=== PATIENT | female | born 1950 | race Caucasian/White ===

== ENCOUNTER 2019-09-21 15:30 | Observation (INO) | payer OTHER, SELFPAY ==
[2019-08-28 09:58] VITALS: BMI 33.7
[2019-09-20] VITALS (10 sets, daily range): BP systolic 85–126; BP diastolic 45–75; PULSE 55–90; RESP 10–18; TEMP 36.1–36.9; O2SAT 95–99; BMI 33.7
--- NOTE | 2019-09-20 09:44 | DI.RAD.S_ITS ---
PROCEDURE: XR KNEE RT 1TO2V INDICATIONS: post op TECHNIQUE: 2 view(s) of the knee acquired. COMPARISON: None. FINDINGS: Bones: Patient is status post knee joint arthroplasty. Hardware components are in expected positions. Visualized bony structures are intact. Soft tissues: Overlying postoperative changes are noted. IMPRESSION: Normal alignment after right total knee arthroplasty. Dictated by: Vincent Silva M.D. on 09/20/2019 at 18:23 Approved by: Vincent Silva M.D. on 09/20/2019 at 18:23
--- NOTE | 2019-09-20 10:43 | P.OP_ITS ---
Operative Date/Time/Diagnoses Date of procedure: 09/20/19 Time of procedure: 16:53 Pre-op diagnosis: Right knee osteoarthritis Post-op diagnosis: same Procedure & Clinicians Procedure: Right total knee arthroplasty Same procedure as scheduled: Yes Indications: The patient presents today for total knee arthroplasty after failure of conservative treatment. The nature of the procedure including the risks and benefits, alternatives, postoperative course and expected outcome were discussed and all questions answered. Consent was obtained. Operative site confirmed and marked. Surgeon: Jamaal Narvaez Senior Software Project Manager: Shane Gates Anesthesia Type: General, Spinal and Local Operative Notes Findings: The patient's tissue was somewhat edematous throughout most likely due to her exacerbation of eczema. No evidence of infection. A +2 femoral cut was made given her preoperative flexion contracture of approximately 15?. Approximately 10 cm was cut from least involved lateral tibial plateau which corresponded to 3 mm from the medial side. The knee balanced with routine soft tissue exposure and osteophyte removal along with some mild release of the MCL with an 18 gauge needle. The knee was just slightly tight medial compared to lateral. The knee went into full extension and flexed beyond 120?. Patellar tracking was excellent. Closure Type: primary Specimen(s): none sent Prosthetic devices, grafts, tissues, transplants, or devices: Barroso and Nephew Devika BCS: 5 femoral component, 3 tibial component, 9 mm BCS polyethylene tray and 29 x 7.5 mm round patella Applied: implant(s) Blood products transfused: none Tourniquet time (min): 56 Procedure in detail: The patient was taken to the operative suite and placed under general and spinal anesthesia. The patient was given prophylactic antibiotics prior to surgery. The patient was also given tranexamic acid, 1 g, just prior to surgery for postoperative hemostasis. The lateral knee was prepped and the joint injected with 20 mL of 1% Lidocaine with epinephrine. The knee was then prepped and draped in usual sterile fashion. The leg was exsanguinated with an Esmarch dressing and the tourniquet raised to 250 torr. A 15 cm anterior incision was made. Next a medial trivector arthrotomy was made. The extensor mechanism was marked to ensure accurate repair. Initial exposing dissection was carried out medially and laterally. The knee was then flexed and the intramedullary femoral guide janet placed. The distal femoral cut was made in 6 ? of valgus at the +2 position. The femoral size was measured and the appropriate cutting block was then placed and the anterior, posterior and chamfer cuts made. The intramedullary tibial alignment janet was then placed. The guide was set to remove approximately 10 mm from the less affected lateral side. The proximal tibial cut was then made with an oscillating saw. All meniscus and bony debris was then removed. Posterior femoral osteophytes removed with a curved osteotome. Flexion extension gaps were checked. The knee was slightly tight medial which was mostly corrected with standard releases and osteophyte removal plus some percutaneous release of the MCL with an 18 gauge needle. The soft tissues were then injected with a combination of 20 mL of half percent Marcaine with epinephrine and 20 mL of Exparel. The trial components were then placed. The knee was then extended and the patellar thickness was measured and a cut made removing approximately 7-8 mm of bone. The patella was then sized and drilled. Some excess lateral bone was excised and the patellofemoral ligament released. The knee went into full extension and flexion beyond 120?. There was excellent medial-lateral balance throughout motion with just slight tightness medially in extension. Patellar tracking was excellent. The trial components were removed and the knee was cleansed with Pulsavac irrigation and dried. The final components were cemented with high viscosity vacuum mixed bone cement with antibiotics. The joint was filled with a dilute Betadine solution. The knee was held in extension and the patellar clamped until the cement was adequately cured. The knee was then irrigated. The extensor mechanism was closed with 5 interrupted #1 Vicryl sutures and a running Quill suture at approximately 90 degrees of flexion. The joint was then injected with a combination of 1 g of tranexamic acid and 20 mL of quarter percent Marcaine with epinephrine. The subcutaneous tissue was closed with 2 0 Vicryl. The skin was closed with pernell and surgical adhesive. An tru dressing and Timo wrap were then applied. The patient tolerated the procedure well and was returned to recovery room in good condition. Complications: none Post-operative Condition: stable Disposition: PACU Plan for aftercare: Count includes the [facility] protocol for total knee arthroplasty.
[2019-09-20] MEDS: LACTATED RINGERS 1,000 ML 84 ML IV (13:38)
--- NOTE | 2019-09-20 13:41 | PM.PREOP ---
Pre-operative Note Interval Note History & Physical reviewed/Exam performed by Physician: Yes Changes to H&P: No
[2019-09-20] MEDS: CELECOXIB 200 MG CAPSULE PO (13:54)
[2019-09-20] MEDS: PREGABALIN 75 MG CAPSULE PO (13:54)
[2019-09-20] MEDS: ACETAMINOPHEN 325 MG TABLET 975 MG PO (13:54)
--- NOTE | 2019-09-20 14:29 | SUR.PREOP ---
Admit note: Patient arrived with irritated skin. Patient stated that sh
[2019-09-20] MEDS: CEFAZOLIN 2 GM/100 ML FROZ.PIGGY IV ×2 (15:15→22:03)
[2019-09-20] MEDS: LIDOCAINE 1% W/EPI 20 ML INJ (15:30)
--- NOTE | 2019-09-20 15:56 | SUR.OPER ---
Supine on padded OR bed. Pillow under head, arms secured on padded armboards <90 degree abduction. Safety belt across torso. Non-operative leg secured with tape over blanket over lower leg. Operative leg secured in DeMayo/Ady positioner. Foam padded brace at thigh of operative leg.
[2019-09-20] MEDS: BUPIVACAINE 0.25% W/ EPI (PF) 20 ML, TRANEXAMIC ACID 1,000 MG, SODIUM CHLORIDE 0.9% 10 ML INJ (16:00)
[2019-09-20] MEDS: BUPIVACAINE 0.25% W/ EPI (PF) 40 ML, BUPIVACAINE LIPOSOME 266 MG, SODIUM CHLORIDE 0.9% ... INJ (16:01)
[2019-09-20] MEDS: SODIUM CHLORIDE IRRIG SOLUTION 250 ML, POVIDONE-IODINE SPONGE STICKS 1 APPLIC IRR (16:02)
[2019-09-20] MEDS: LACTATED RINGERS 1,000 ML 42 ML IV (16:47)
[2019-09-20] MEDS: LACTATED RINGERS 1,000 ML 125 ML IV (18:25)
[2019-09-20] MEDS: IBUPROFEN 400 MG TABLET PO (21:31)
[2019-09-20] MEDS: ACETAMINOPHEN 325 MG TABLET 650 MG PO (21:31)
[2019-09-20] MEDS: ASPIRIN EC 81 MG TABLET PO (21:31)
[2019-09-21] VITALS (8 sets, daily range): BP systolic 100–122; BP diastolic 45–66; PULSE 56–71; RESP 12–18; TEMP 36.3–37.1; O2SAT 93–98
[2019-09-21] MEDS: IBUPROFEN 400 MG TABLET PO ×6 (00:31→20:44)
--- NOTE | 2019-09-21 01:41 | PC.NURSE ---
Addendum entered by Aruna Cowan R.N. 09/21/19 05:19: States she was able to sleep well after receiving warm blanket earlier. Denies pain at rest but states is 4/10 with movement. Medicated with scheduled Ibuprofen and provided ice pack for comfort. Original Note: 0030 Patient is alert and oriented. Breath sounds are CTA with RA sat of 96%. HRR but bradycardic at 58 bpm. Denies nausea. BT hypoactive; denies having passed flatus as yet. Had not voided since return from surgery so was assisted to C with walker and 1 assist. Denies feeling weak and did well but slow in movements. States pain is currently 3/10; medicated with scheduled Ibuprofen and ice applied once back in bed. Declines offer of stronger pain medication. Was able to void and denies any dysuria. OTILIA dressing with miguel wrap to right knee is CDI. CMS intact; able to lift leg off bed even with resistance. Non pitting edema in bilateral LE. Is able to turn herself in bed. Wearing calf SCD to left leg. Fall risk score is moderate; bed alarm is activated. Spouse at bedside; rooming in.
[2019-09-21] MEDS: LACTATED RINGERS 1,000 ML 125 ML IV (03:32)
[2019-09-21 06:12] LABS: Hematocrit 37.4 % (36-46); Hemoglobin 12.6 g/dL (12.0-16.0)
[2019-09-21] MEDS: CEFAZOLIN 2 GM/100 ML FROZ.PIGGY IV (06:30)
[2019-09-21] MEDS: LEVOTHYROXINE 100 MCG TABLET 200 MCG PO (06:30)
[2019-09-21] MEDS: ACETAMINOPHEN 325 MG TABLET 650 MG PO ×3 (08:22→20:43)
[2019-09-21] MEDS: ASPIRIN EC 81 MG TABLET PO ×2 (08:22→20:44)
[2019-09-21] MEDS: LORATADINE 10 MG TABLET PO (08:22)
--- NOTE | 2019-09-21 09:24 | PT.IIE ---
this is to certify that I have reviewed this documentation and is involved with this pt's care. Current Diagnoses Unilateral primary osteoarthritis, right knee (09/20/19) Localized edema (09/20/19) Surgery Performed Operation Date: 09/20/19 15:15 Actual Procedures p Total Knee Arthroplasty(Right) - Jamaal Narvaez MD Medical History (Last Updated 08/28/19 @ 12:31 by Ping Rizo RN) Edema (Acute) HLD (hyperlipidemia) (Acute) Hypothyroid (Acute) Osteoarthritis (Acute) Physical Therapy Inpatient Evaluation/Re-Eval M1 PT/OT-IP Prior Functional Status Start: 09/21/19 12:30 Freq: NEEDED Status: Active Protocol: Document 09/21/19 09:24 MT (Rec: 09/21/19 13:12 MT [email or web address]) Medical Review Prior Functional Status Medical History Reviewed Yes Diet/Fluid Consistency Regular Communication Pt was able to make needs known Mobility and Gait Pt reports that she used a walking stick to get around her house when she was having pain or for long distances, but otherwise reported being able to walk without an AD. Activities of Daily Living and IADL's Pt reported being independent with her ADL's Social History Household Members spouse,children Living Arrangements House Number of Floors (Floors) One Floor Number of Stairs To Enter/Railing? 3 stairs to enter house with a R handrail Home Environment Standard Height Toilet,Walk in Shower Home Equipment Front Wheel Walker,Grab Bars Near Toilet Employment Status Retired Additional Social History Comment Pt lives in house with her daughter and . Pt and report that they are planning on getting a bedside commode for pt. M2 PT-IP Current Condition Start: 09/21/19 12:30 Freq: NEEDED Status: Active Protocol: Document 09/21/19 09:24 MT (Rec: 09/21/19 13:12 MT [email or web address]) Physical Therapy Current Condition Current Condition Evaluation Date 09/21/19 Treatment Diagnosis difficulty in walking s/p R TKA Onset Date 09/20/19 Weight Bearing Status Weight Bearing Status Weight Bear as Tolerated Allowed Weight Bearing Amount (enter % WBAT R LE or #) (%) M3 PT-IP Subjective Start: 09/21/19 12:30 Freq: NEEDED Status: Active Protocol: Document 09/21/19 09:24 MT (Rec: 09/21/19 13:12 MT [email or web address]) Subjective Physical Therapy Visit Type Type Initial Evaluation Visit Start Time 09:24 Visit Stop Time 10:24 Total Visit Minutes 60 Number of MAGNETIC TAPE COMPOSER OPERATOR Visits 0 Physical Therapy Visit Comments Patient Comments Pt was willing to participate in PT eval today Therapy Pain Assessment Pain When Pain Assessed At Rest Pain Present Pain Present Denied Pain M4 PT-IP Mobility and Gait Start: 09/21/19 12:30 Freq: NEEDED Status: Active Protocol: Document 09/21/19 09:24 MT (Rec: 09/21/19 13:12 MT [email or web address]) PT-Bed Mobility Assessment Supine to Sit Supine to Sit Contact Guard Assistance, Minimal Assistance Sit to Supine Sit to Supine Contact Guard Assistance, Minimal Assistance Scooting Scooting to Edge of Bed Contact Guard Assistance PT-Transfer Assessment Sit to and From Stand Sit to and from Stand Moderate Assistance,Maximum Assistance,1 Person Assistance ,Use of Upper Extremities Equipment Transfer Assistive Device Gait Belt,Front Wheeled Walker Orthotic/Prosthetic Devices or Brace: No Transfers Transfer Destination Bed,Chair Transfer Technique sit to stand to initiate ambulation Transfer Ability Level of Assist Maximum Assistance,1 Person Assistance,Use of Upper Extremities Comments Mobility Comments pt was found sitting in chair at start of eval. Pt's BP prior to initatign movement was 110/61 and 02 was 96%. Pt performed sit to stand from chair with 2WW and ModA. She required cues for safe use of AD and cueign to tighten her quad to allow her R LE to accept weight with stability. Pt took steps to sit onto bed . Pt performed sit to supine on the L side of her bed with Kayla for maneuvering R LE and for maintaining safety, becuase she was leaning back quickly to try to get her leg up to the bed. Pt was educated that it would be easier to get in/out of the bed on the R side and said that she could do that at home . Pt performed supine to sit with CGA. Pt's was educated on applying gait belt in sitting and assisting pt with R LE to get into/out of bed when needed. was able to safely assist pt with bed mobility and gait belt. Pt then attempted sit to stand , but was not able to complete and had to sit back down. Pt was educated on proper use of AD and to push through legs to stand up instead of leaning over. Pt performed sit to stand with 2WW and maxA and cueing for safety and slowing down impulsive movements. Began caregiver training for sit to stand with pt . Pt and required max cues for slowing down movements and communicating steps to each other. Pt performed sit to stand with assist, but still required Kayla from PT and cueign for safety. Gait Assessment Gait Gait Assistance Required: Moderate Assistance,1 Person Assist Distance (Feet) 40 Able to Maintain Weight Bearing Status Yes During Gait Assistive Devices Assistive Device Gait Belt,Front Wheeled Walker Orthotic/Prosthetic Devices or Brace: No Gait Deviations General Gait Pattern Antalgic,Ataxic,Decreased Stride Length,Decreased Feet Clearance,Flexed Trunk,Step-to Gait Factors Limiting Gait Function Factors Limiting Gait Function Decreased Activity Tolerance, Decreased Strength,Difficulty Following Directions,Limited Range of Motion,Pain,Poor Balance,Poor Safety Awareness Comments Gait Comments Pt was able to walk 20ft within room using 2WW and ModA . She required max cueing in order to tighten her quad to prevent buckling during gait. Pt also required max cueing to stay within walker frame, as she kept pushing it too far in front of her. Stair Climbing Assessment Comments Stair Climbing Comments not assessed at this time PT-Balance Assessment Sitting Balance and Reactions Static Sitting Balance Ability Good Dynamic Sitting Balance Ability Fair Standing Balance and Reactions Static Standing Balance Ability Fair Dynamic Standing Balance Ability Poor Device Used 2WW M5 PT-IP Objective Assessments Start: 09/21/19 12:30 Freq: NEEDED Status: Active Protocol: Document 09/21/19 09:24 MT (Rec: 09/21/19 13:12 MT [email or web address]) Orientation Orientation/Cognition Level of Alertness Alert Orientation Name,Date,Day of Week, Situation Language Function Ability No Deficits Noted Safety Awareness Decreased Safety Awareness Memory Description Short Term Impaired Comments Pt had great difficulty with following simple step directions. She also had difficulty with remembering and applying cues given to her and they had to be repeated to her often. She was very impulsive with her movements and had to be reminded frequently to slow down to decrease her fall risk. Gross Range of Motion Lower Extremity ROM Assessment Right Impaired Impairments Pt had difficulty with AROm of R knee but it could passively reach 90 flexion in sitting Strength Lower Extremity Strength Assessment Right Impaired Hip 3+/5 Knee pain with active flexiona nd extension Ankle 5/5 Sensation Assessment Sensation Gross Sensation WNL M6 PT-IP Treatment Start: 09/21/19 12:30 Freq: NEEDED Status: Active Protocol: Document 09/21/19 09:24 MT (Rec: 09/21/19 13:12 MT [email or web address]) Physical Therapy Treatment Education Education Provided Weight Bearing Status,Post-Op Packet,Safety M7 PT-IP Assessment and Plan Start: 09/21/19 12:30 Freq: NEEDED Status: Active Protocol: Document 09/21/19 09:24 MT (Rec: 09/21/19 13:12 MT [email or web address]) PT Summary Assessment and Plan Potential Rehabilitation Potential Good Status of Condition at Evaluation Evolving Summary Impairments Pain,ROM,Strength,Balance, Cognition,Bed Mobility, Transfers,Gait,Activity Tolerance Assessment Summary Pt has decreased mobility and difficulty with walking s/p R TKA. Pt requires maxA with her mobility at this time and required max cues for safety. She is impulsive with her movements and had trouble with remembering and follwoing simple directions, which puts her at a high risk for fall. Began caregiver training with bed mobility and sit to stands , but further training is required to improve safety. Once successful completion of caregiver training and pt is able to navigate stairs, she will be able to d/c home with assistance from and HHPT/OPPT. Goals Bed Mobility Goal Independent Transfer Goal Standby Assistance,Front Wheeled Walker Gait Goal Standby Assistance,Front Wheel Walker Gait Distance 150 Other Goals ascend/descend 3 stairs with R handrail and 2WW or cane/ walking stick Days to Meet Goals 5 Frequency of Treatment Frequency Of Treatment Twice a Day Treatment Plan Physical Therapy Treatment Plan Bed Mobility Training,Transfer Training,Gait Training, Therapeutic Exercise,Post Op Education,Discharge Planning, Hot or Cold Pack Other Recommendations and Next Treatment continue with caregiver Focus training. Stair training. Recommendations To Nursing Amount of Assist Needed 1 Person Assist Discharge Recommendations PT Discharge Recommendations Home with Assistance,Home Health,Outpatient PT Other Discharge Recommendations Pt has HHPT set up for first week of discharge and then has OP PT set up at [facility] after 1st week.
[2019-09-21] MEDS: OXYCODONE IR 5 MG TABLET 10 MG PO ×3 (09:56→23:38)
--- NOTE | 2019-09-21 11:34 | PM.PNPO.1 ---
Subjective Subjective Date Patient Seen: 09/21/19 Time Patient Seen: 11:34 Interval history: Patient pain is currently [id number]. Denies fever chills. No nausea vomiting. Exam Vital Signs (past 8 hours): - 09/21/19 05:00 09/21/19 08:09 Temperature 97.4 F L 97.3 F L Pulse Rate 56 L 61 Respiratory Rate 18 16 Blood Pressure 104/63 104/53 L Pulse Oximetry 94 95 Oxygen Delivery Method Room Air Oxygen Flow Rate 0 Narrative Exam Narrative: 69-year-old female resting comfortably in bedside chair in no apparent distress. Regina dressing is on and functioning. Neurovascular status is intact distal bilateral lower extremities. Objective Labs Result Diagrams: 09/21/19 05:35 Labs: Laboratory Results - last 24 hr 09/21/19 05:35 Hgb 12.6 Hct 37.4 Assessment & Plan Post-op Postoperative Procedures: Procedures Operation Date: 09/20/19 15:15 Actual Procedures Side Surgeon p Total Knee Arthroplasty Right Jamaal Narvaez MD Postop day 1 status post right total knee arthroplasty. Patient to mobilize with physical therapy working on lower extremity strength and balance. Likely discharge home tomorrow. Quality VTE Deep Vein Thrombosis/Pulmonary Embolism Present on Admission: No
--- NOTE | 2019-09-21 15:14 | CM.IDA ---
Initial DCP Assessment Note: Pt is a 69 yo female, resident of [place]. Pt is POD#1 from right knee surgery by Dr Narvaez. PCP: Prince Adams Payer: Amauri ANDERSON Reviewed chart and met w/pt, explained SW role. Pt is up in chair, eating lunch. Spouse joins us shortly. Pt/spouse eager to get home tomorrow. Pt feels confident about her return home and explains to this GENERAL INTERNAL MEDICINE DOCTOR she has already contacted [facility] to secure PT for a week before her transition to outpt PT. TC from Mathew at [facility] requesting completed F2F and clinical documentation available. Faxed face sheet, F2F and op note,prog note. No therapy notes available yet. Mathew requests DC summary and update re DC date when available. P: DC home w/spouse and [facility] expected, spouse to transport home via pov upon DC KILO [place] Discharge Planning/Care Management CM Discharge Assessment Start: 09/21/19 15:01 Freq: Status: Active Protocol: Document 09/21/19 15:07 STEFFI (Rec: 09/21/19 15:14 STEFFI [id number]) Discharge Planning Assessment Assigned Drill Operator KILO Hitchcock DPOA/Assigned Designee Name Hung Mariee, spouse Contact Information [phone] Advance Directives? No Advance Directives on File No History Provided By Patient Prior Living Arrangements House Household Members spouse,children Type of transporation used prior to Drives own vehicle admit Independent with ADL's Yes Is patient alert and oriented? Yes Barriers to Discharge No Discharge Plan Home Transportation Arrangement Family Referrals Initiated None needed Additional Comment As of now Whiteboard Updated in Patient Room with Yes name and ext. # of Drill Operator Review Status In Process
--- NOTE | 2019-09-21 16:06 | PT.IPTN ---
This is to certify that I have reviewed this documentation and is involved with this pt's care. Current Diagnoses Unilateral primary osteoarthritis, right knee (09/21/19) Localized edema (09/21/19) Surgery Performed Operation Date: 09/20/19 15:15 Actual Procedures p Total Knee Arthroplasty(Right) - Jamaal Narvaez MD Physical Therapy Treatment Note M2 PT-IP Current Condition Start: 09/21/19 12:30 Freq: NEEDED Status: Active Protocol: Document 09/21/19 09:24 MT (Rec: 09/21/19 13:12 MT [email or web address]) Physical Therapy Current Condition Current Condition Evaluation Date 09/21/19 Treatment Diagnosis difficulty in walking s/p R TKA Onset Date 09/20/19 Weight Bearing Status Weight Bearing Status Weight Bear as Tolerated Allowed Weight Bearing Amount (enter % WBAT R LE or #) (%) M3 PT-IP Subjective Start: 09/21/19 12:30 Freq: NEEDED Status: Active Protocol: Document 09/21/19 16:06 MT (Rec: 09/21/19 18:10 MT [email or web address]) Subjective Physical Therapy Visit Type Type Treatment Note Visit Start Time 16:06 Visit Stop Time 16:39 Total Visit Minutes 33 Number of CASH PROCESSING SPECIALIST Visits 0 Physical Therapy Visit Comments Patient Comments Pt was willing to participate in PT session. pt's was present for session and participated in caregiver training. Therapy Pain Assessment Pain When Pain Assessed During Mobility Pain Present Pain Present Pain Reported Location right lower extremity Intensity 3 Scale Used Numeric (1 - 10) Pain Behaviors Guarding Pain Management Techniques Apply Cold,Re-positioning, Timing of Activity with Medications M4 PT-IP Mobility and Gait Start: 09/21/19 12:30 Freq: NEEDED Status: Active Protocol: Document 09/21/19 16:06 MT (Rec: 09/21/19 18:10 MT [email or web address]) PT-Bed Mobility Assessment Supine to Sit Supine to Sit Contact Guard Assistance PT-Transfer Assessment Sit to and From Stand Sit to and from Stand Minimal Assistance,1 Person Assistance,Use of Upper Extremities Equipment Transfer Assistive Device Gait Belt,Front Wheeled Walker Orthotic/Prosthetic Devices or Brace: No Transfers Transfer Destination Chair,Wheelchair Transfer Technique sit to stand to initiate ambulation Transfer Ability Level of Assist Minimal Assistance,1 Person Assistance,Use of Upper Extremities Comments Mobility Comments Pt was found laying in bed at start of session. Continued with caregiver training with . was successfully able to apply gait belt on pt without any cueing and instruct the pt through sit to stand to initiate ambulation using 2WW and Saji. Following ambulation, pt performed sit<>stand from wheelchair with successfully cueing pt for sequencing of task. Pt performed stand to sit Saji in chair with 2WW and was positioned with call light and table in reach and chair alarm on. Gait Assessment Gait Gait Assistance Required: Minimum Assistance,1 Person Assist Distance (Feet) 50 Able to Maintain Weight Bearing Status Yes During Gait Assistive Devices Assistive Device Gait Belt,Front Wheeled Walker Orthotic/Prosthetic Devices or Brace: No Gait Deviations General Gait Pattern Antalgic,Ataxic,Decreased Stride Length,Decreased Feet Clearance,Flexed Trunk,Step-to Gait Factors Limiting Gait Function Factors Limiting Gait Function Decreased Activity Tolerance, Decreased Strength,Difficulty Following Directions,Limited Range of Motion,Pain,Poor Balance,Poor Safety Awareness Comments Gait Comments Pt ambulated 50ft in hallway with Saji using 2WW. was instructed on how to assist pt with gait and required some cueing for providing cues to pt reguarding straightening R leg and avoiding internal rotation of R leg during gait. Pt then ambulated to 5 ft x2 w/2WW with the successfully able to provide cues for straightening leg and staying within frame of 2WW. Pt then ambulated 20 feet using 2WW with safely assisting pt with ambulation. Stair Climbing Assessment Evaluation Level of Assist On Stairs Minimal Assistance,1 Person Assistance Devices Stair Climbing Assistive Devices Right Railing Technique/Endurance Stair Climbing Direction Ascend and Descend Stair Climbing Technique Step to Step Number of Steps Climbed 3 Stair Climbing Set # Repetitions (reps) 2 Comments Stair Climbing Comments Pt's stair climbing ability was assessed with PT for the first set. Pt ascended/ descended 3 steps using R hand railing and Saji, and required frequent cueing for sequecning of steps, straightening R LE and proper weight shifting. housekeeper caregiver training was conducted for the second set of stairs. was able to safely help pt up/down 3 steps and was able to provide some cues of sequencing and hand placement, but he required some cueing from therapist. M5 PT-IP Objective Assessments Start: 09/21/19 12:30 Freq: NEEDED Status: Active Protocol: Document 09/21/19 09:24 MT (Rec: 09/21/19 13:12 MT [email or web address]) Orientation Orientation/Cognition Level of Alertness Alert Orientation Name,Date,Day of Week, Situation Language Function Ability No Deficits Noted Safety Awareness Decreased Safety Awareness Memory Description Short Term Impaired Comments Pt had great difficulty with following simple step directions. She also had difficulty with remembering and applying cues given to her and they had to be repeated to her often. She was very impulsive with her movements and had to be reminded frequently to slow down to decrease her fall risk. Gross Range of Motion Lower Extremity ROM Assessment Right Impaired Impairments Pt had difficulty with AROm of R knee but it could passively reach 90 flexion in sitting Strength Lower Extremity Strength Assessment Right Impaired Hip 3+/5 Knee pain with active flexiona nd extension Ankle 5/5 Sensation Assessment Sensation Gross Sensation WNL M6 PT-IP Treatment Start: 09/21/19 12:30 Freq: NEEDED Status: Active Protocol: Document 09/21/19 16:06 MT (Rec: 09/21/19 18:10 MT [email or web address]) Physical Therapy Treatment Education Education Provided Safety M7 PT-IP Assessment and Plan Start: 09/21/19 12:30 Freq: NEEDED Status: Active Protocol: Document 09/21/19 16:06 MT (Rec: 09/21/19 18:10 MT [email or web address]) PT Summary Assessment and Plan Potential Rehabilitation Potential Good Status of Condition at Evaluation Evolving Summary Impairments Pain,ROM,Strength,Balance, Cognition,Bed Mobility, Transfers,Gait,Activity Tolerance Progress Towards Goals Progressing Toward Goals Assessment Summary Continued with in home caregiver training for pt. Instructed pt and caregiver training with navigating stairs. Pt is Saji with her mobility, but continues to have impulsivity and is still unsteady with movement. continued to require cueing with caregiver training, especially with the stairs and further training should be conducted. Pending successful completion of mobility tasks by pt and safe handling from caregiver, pt will be safe to discharge home with assistance from . Goals Bed Mobility Goal Independent Transfer Goal Standby Assistance,Front Wheeled Walker Gait Goal Standby Assistance,Front Wheel Walker Gait Distance 150 Other Goals ascend/descend 3 stairs with R handrail and 2WW or cane/ walking stick Days to Meet Goals 5 Frequency of Treatment Frequency Of Treatment Twice a Day Treatment Plan Physical Therapy Treatment Plan Bed Mobility Training,Transfer Training,Gait Training, Therapeutic Exercise,Post Op Education,Discharge Planning, Hot or Cold Pack Other Recommendations and Next Treatment continue with caregiver Focus training in all tasks. is planning on being at hospital on Wednesday09/22/19 at 9:30 am. Recommendations To Nursing Amount of Assist Needed 1 Person Assist Discharge Recommendations PT Discharge Recommendations Home with Assistance, Outpatient PT
[2019-09-22] MEDS: IBUPROFEN 400 MG TABLET PO ×3 (00:50→08:54)
[2019-09-22 03:44] VITALS: BP 130/73; PULSE 67; RESP 18; TEMP 36.3; O2SAT 95
[2019-09-22] MEDS: LEVOTHYROXINE 100 MCG TABLET 200 MCG PO (05:35)
--- NOTE | 2019-09-22 06:28 | PC.NURSE ---
Pt POD 2 s/p right knee repair. CMS intact. Reports pain at right knee 5/10. On scheduled ibuprofen. States right leg still, encouraged to perform ankle waves while awake. Aquacell dressing CDI, GIANFRANCO wrap removed. OTILIA drain attached, light flashing green. Transferred to [facility] mult times overnight with 1person assist. Sitting up in chair this morning drinking juice and tea. Anticipate discharge today.
[2019-09-22 07:22] VITALS: BP 117/63; PULSE 64; RESP 16; TEMP 36.3; O2SAT 94
[2019-09-22] MEDS: LORATADINE 10 MG TABLET PO (08:55)
[2019-09-22] MEDS: ACETAMINOPHEN 325 MG TABLET 650 MG PO (08:55)
[2019-09-22] MEDS: ASPIRIN EC 81 MG TABLET PO (08:55)
[2019-09-22] MEDS: OXYCODONE IR 5 MG TABLET 10 MG PO (09:47)
--- NOTE | 2019-09-22 10:35 | PT.IPTN ---
Current Diagnoses Unilateral primary osteoarthritis, right knee (09/21/19) Localized edema (09/21/19) Surgery Performed Operation Date: 09/20/19 15:15 Actual Procedures p Total Knee Arthroplasty(Right) - Jamaal Narvaez MD Physical Therapy Treatment Note M2 PT-IP Current Condition Start: 09/21/19 12:30 Freq: NEEDED Status: Discharge Protocol: Document 09/21/19 09:24 MT (Rec: 09/21/19 13:12 MT [email or web address]) Physical Therapy Current Condition Current Condition Evaluation Date 09/21/19 Treatment Diagnosis difficulty in walking s/p R TKA Onset Date 09/20/19 Weight Bearing Status Weight Bearing Status Weight Bear as Tolerated Allowed Weight Bearing Amount (enter % WBAT R LE or #) (%) M3 PT-IP Subjective Start: 09/21/19 12:30 Freq: NEEDED Status: Discharge Protocol: Document 09/22/19 10:35 AB (Rec: 09/22/19 13:33 AB [id number]) Subjective Physical Therapy Visit Type Type Treatment Note Visit Start Time 10:35 Visit Stop Time 11:11 Total Visit Minutes 36 Number of MUD TRUCKER Visits 0 Physical Therapy Visit Comments Patient Comments pt agreeable to do PT; spouse present for caregiver training Therapy Pain Assessment Pain When Pain Assessed During Mobility Pain Present Pain Present Pain Reported Location right lower extremity Scale Used pain scale not stated Pain Management Techniques Re-positioning,Timing of Activity with Medications M4 PT-IP Mobility and Gait Start: 09/21/19 12:30 Freq: NEEDED Status: Discharge Protocol: Document 09/22/19 10:35 AB (Rec: 09/22/19 13:33 AB [id number]) PT-Transfer Assessment Sit to and From Stand Sit to and from Stand Contact Guard Assistance, Minimal Assistance,1 Person Assistance,Use of Upper Extremities Equipment Transfer Assistive Device Gait Belt,Front Wheeled Walker Orthotic/Prosthetic Devices or Brace: No Transfers Transfer Destination Chair Transfer Ability Level of Assist Minimal Assistance Comments Mobility Comments caregiver training conducted. spouse assisted pt with sit<> stand, transfers, ambulation and stair climbing and was able to safely assist pt. occasionally reminders to cue pt but able to complete without reminders from PT towards end of session. Gait Assessment Gait Gait Assistance Required: Contact Guard Assist,Minimum Assistance,1 Person Assist Distance (Feet) 75 Able to Maintain Weight Bearing Status Yes During Gait Assistive Devices Assistive Device Gait Belt,Front Wheeled Walker Orthotic/Prosthetic Devices or Brace: No Gait Deviations General Gait Pattern Antalgic,Decreased Stride Length,Decreased Feet Clearance,Step-to Gait Factors Limiting Gait Function Factors Limiting Gait Function Decreased Activity Tolerance, Decreased Strength,Difficulty Following Directions,Limited Range of Motion,Pain,Poor Balance,Poor Safety Awareness Comments Gait Comments spouse was able to safely assist pt. Stair Climbing Assessment Evaluation Level of Assist On Stairs Minimal Assistance,Moderate Assistance,1 Person Assistance Devices Stair Climbing Assistive Devices Right Railing Technique/Endurance Stair Climbing Direction Ascend and Descend Stair Climbing Technique Step to Step Number of Steps Climbed 3 Stair Climbing Set # Repetitions (reps) 1 Comments Stair Climbing Comments spouse assist pt with up/down steps. PT cued spouse to instruct pt for quad activation but able to cue pt afterwards. M5 PT-IP Objective Assessments Start: 09/21/19 12:30 Freq: NEEDED Status: Discharge Protocol: Document 09/21/19 09:24 MT (Rec: 09/21/19 13:12 MT [email or web address]) Orientation Orientation/Cognition Level of Alertness Alert Orientation Name,Date,Day of Week, Situation Language Function Ability No Deficits Noted Safety Awareness Decreased Safety Awareness Memory Description Short Term Impaired Comments Pt had great difficulty with following simple step directions. She also had difficulty with remembering and applying cues given to her and they had to be repeated to her often. She was very impulsive with her movements and had to be reminded frequently to slow down to decrease her fall risk. Gross Range of Motion Lower Extremity ROM Assessment Right Impaired Impairments Pt had difficulty with AROm of R knee but it could passively reach 90 flexion in sitting Strength Lower Extremity Strength Assessment Right Impaired Hip 3+/5 Knee pain with active flexiona nd extension Ankle 5/5 Sensation Assessment Sensation Gross Sensation WNL M6 PT-IP Treatment Start: 09/21/19 12:30 Freq: NEEDED Status: Discharge Protocol: Document 09/22/19 10:35 AB (Rec: 09/22/19 13:33 AB [id number]) Physical Therapy Treatment Education Education Provided Precautions,Safety M7 PT-IP Assessment and Plan Start: 09/21/19 12:30 Freq: NEEDED Status: Discharge Protocol: Document 09/22/19 10:35 AB (Rec: 09/22/19 13:33 AB [id number]) PT Summary Assessment and Plan Potential Rehabilitation Potential Good Summary Impairments Pain,ROM,Strength,Balance, Coordination,Sensation,Tone, Cognition,Bed Mobility, Transfers,Gait,Activity Tolerance Progress Towards Goals Slow Progress due to Pain,Slow Progress due to Medical Issues Assessment Summary caregiver training conducted and spouse was able to assist pt safely. Pt continues to have difficulty following directions but spouse able to instruct and direct pt appropriately. pt plans to go home today and spouse will assist pt. Goals Bed Mobility Goal Independent Transfer Goal Standby Assistance,Front Wheeled Walker Gait Goal Standby Assistance,Front Wheel Walker Gait Distance 150 Other Goals ascend/descend 3 stairs with R handrail and 2WW or cane/ walking stick Days to Meet Goals 5 Frequency of Treatment Frequency Of Treatment Twice a Day Treatment Plan Physical Therapy Treatment Plan Bed Mobility Training,Transfer Training,Gait Training, Therapeutic Exercise,Post Op Education,Discharge Planning, Hot or Cold Pack Recommendations To Nursing Amount of Assist Needed 1 Person Assist Discharge Recommendations PT Discharge Recommendations Home with Assistance, Outpatient PT
--- NOTE | 2019-09-22 13:06 | PM.DS.1 ---
History of Present Illness History of Present Illness Date Patient Seen: 09/22/19 Chief complaint: [id number] RIGHT TOTAL KNEE ARTHROPLASTY *OPB* Narrative: Please see HPI previously recorded in the chart. Discharge Providers Provider Date of admission: 09/21/19 15:30 Discharge Date: 09/22/19 Consults: 09/20/19 17:57 Consult to Discharge Planning Routine Comment: Consult to Physical Therapy Evaluate & Treat Comment: Physician Instructions: postop TKA protocol Consult to Respiratory Therapy Evaluate & Treat Comment: Physician Instructions: Evaluate and treat 09/20/19 18:24 Consult to Pastoral Services Routine Comment: potient request Discharge provider: Sienna Maya PA-C Summary Hospital Course Discharge Diagnosis: s/p total knee arthroplasty Hospital Course: The patient presents today for total knee arthroplasty after failure of conservative treatment. The nature of the procedure including the risks and benefits, alternatives, postoperative course and expected outcome were discussed and all questions answered. Consent was obtained. Operative site confirmed and marked. After obtaining informed consent patient was taken to the operating room where she underwent a right total knee arthroplasty with Dr. Narvaez which she tolerated well without complications. She was transferred to the acute care floor where she has been progressing well post operatively. She had poor mobility and pain control POD#1 but this has improved on POD#2. She completed stair training with PT. She is voiding appropriately and tolerating a diet. Prescription of oxycodone provided at discharge. She was medically stable on postop day 2 for discharge to home. Status at Discharge Cognitive/behavioral status at discharge: oriented Functional status at discharge: uses cane/walker Overall status at discharge: patient is progressing back to baseline Exam Vital Signs (past 8 hours): - 09/22/19 07:22 Temperature 97.4 F L Pulse Rate 64 Respiratory Rate 16 Blood Pressure 117/63 Pulse Oximetry 94 Oxygen Delivery Method Room Air Oxygen Flow Rate 0 Narrative Exam Narrative: Pleasant 69 year old female resting comfortably in bed. Alert and oriented in no acute distress. Aquacel dressing in place over right knee is CDI. Patient able to fire foot flexors and extensors. Calves are soft and compressible bilaterally. Palpable pedal pulse. Objective Labs Result Diagrams: 09/21/19 05:35 Discharge Plan Discharge Plan Patient Disposition: Home Discharge comment: Discharge to home after PT/caregiver training Discharge orders & Medications Prescriptions: New acetaminophen 325 mg Tablet 650 mg PO TID Qty: 40 RF: 0 aspirin 81 mg Tablet,Delayed Release (Dr/Ec) 81 mg PO BID Qty: 40 RF: 0 ibuprofen 400 mg Tablet 400 mg PO Q4HR Qty: 40 RF: 0 oxycodone 5 mg Tablet 5 mg PO Q4-6H PRN (Reason: Pain, Moderate (4-6)) Qty: 40 RF: 0 hydroxyzine pamoate 25 mg Capsule 25 mg PO Q6HR PRN (Reason: Nausea) Qty: 40 RF: 0 Continued fexofenadine 180 mg Tablet 180 mg PO DAILY RF: 0 levothyroxine 200 mcg Capsule 200 mcg PO DAILY RF: 0 Discontinued meloxicam 15 mg Tablet 15 mg PO DAILY RF: 0 Follow up/Referrals: Jamaal Narvaez MD [Physician] - As previously scheduled Diet/Activity/Treatments Diet: Diet as Tolerated Activity: Weight bear as tolerated. Use front wheel walker or cane for support. Continue range of motion exercises. Cold/Heat Therapy: Ice packs as needed. Other treatments: Follow [employer] guide. Skin/Wound/Dressing Care Report to your healthcare provider any signs of infection, such as:: chills, fever, night sweats, unusual drainage and unusual redness Dressing: Aquacel dressing is to remain in place. If dressing becomes saturated please call the office. Visit Report/Discharge Packet Instructions: DI for Knee Replacement, DI for Constipation, How to Prevent Falls Discharge Data Attending Provider: Jamaal Narvaez Admit Date/Time: 09/21/19 15:30 Discharges patient from system. Discharge Date/Time: 09/22/19 11:45 Quality VTE Deep Vein Thrombosis/Pulmonary Embolism Present on Admission: No
== END 2019-09-22 11:45 | disposition home or self-care (01) ==
LOC: OR 16:00 → AC 16:00
PROVIDERS: Admitting Provider Orthopaedic Surgery; Visit Provider Orthopaedic Surgery
PROC: 0SRC0JZ Replacement of Right Knee Joint with Synthetic Substitute, Open Approach (ICD-10-PCS; CPT 27447; principal; 2019-09-20 15:15)
DX: M17.11 Unilateral primary osteoarthritis, right knee (principal); R60.0 Localized edema
CPT/HCPCS: 27447; 36415; 73560; 85014; 85018; 97116; 97162; 97530; C1776; G0378; C9290; J0690; J1100; J2250; J2274; J2405; J2704; J3010